=== PATIENT | female | born 1950 | race Hispanic/Latino ===

== ENCOUNTER 2016-04-20 09:32 | Day surgery (SDC) | payer MEDICARE ==
[~2016-04-20 09:32] MED LIST: PRED FORTE 1% ONE; TETCAINE OD PRN; TETRACAINE 0.5% OD PRN
--- NOTE | 2016-04-20 13:54 | Anesthesia Day of Surgery ---
Anesthesia Day of Surgery - Day of Surgery Patient Examined: Yes Patient H&P Reviewed: Yes Patient is NPO: Yes
--- NOTE | 2016-04-20 13:54 | Anesthesia Consultation ---
Anesthesia Consult and Med Hx Date of service: 04/20/16 - Airway Anesthetic Teeth Evaluation: Dentures (upper) ROM Head & Neck: Inadequate Mental/Hyoid Distance: Adequate Mallampati Class: Class IV Intubation Access Assessment: Possibly Difficult (jaw surgery - plates and screws mandible and maxilla, limited mouth opening with left deviation of jaw) - Pulmonary Exam CTA: Yes - Cardiac Exam Cardiac Exam: RRR - Pre-Operative Health Status ASA Pre-Surgery Classification: ASA3 Proposed Anesthetic Plan: MAC - Pulmonary Hx Smoking: Yes (CIGARETTES 1\\2 PPD SINCE 13 YEARS OLD) - Cardiovascular System Hx Hypertension: Yes (DIAGNOSED 2 YRS AGO) Hx Heart Murmur: Yes - Central Nervous System Hx Neuromuscular Disorder: Yes (muscular "ticks/jerks" per patient) Hx Seizures: Yes (LAST 2008 - no medications, headaches) - Gastrointestinal Hx Gastroesophageal Reflux Disease: No - Endocrine Hx Non-Insulin Dependent Diabetes: No (pre-diabetic, A1C 6.1) - Hematic Hx Anemia: Yes Hx Sickle Cell Disease: No - Other Systems Hx Alcohol Use: No Hx Substance Use: No Hx Cancer: No Hx Obesity: No
[2016-04-20] MEDS: AK-Dilate OD SCH ×3 (14:00→14:13)
[2016-04-20] MEDS: MYDRIACYL OD SCH ×3 (14:01→14:13)
[2016-04-20] MEDS: VIGAMOX OD SCH ×3 (14:01→14:14)
[2016-04-20] MEDS ORDERED: VERSED ONE (15:11)
[2016-04-20] MEDS ORDERED: SUBLIMAZE ONE (15:11)
[2016-04-20] MEDS ORDERED: NACL P/F VIAL (10 ML) 10 ML ONE (15:17)
[2016-04-20] MEDS ORDERED: ADRENALINE P/F IO ONE (15:24)
[2016-04-20] MEDS ORDERED: DIPRIVAN 10 MG/ML IV ONE (15:30)
--- NOTE | 2016-04-20 16:03 | Short Stay Summary ---
Short Stay Documentation Date of service: 04/20/16 - History H&P: obtained from office - Allergies and Medications Current Medications: Allergies codeine Adverse Reaction (Intermediate, Verified 04/17/16 13:26) Vomiting Home Medications Medication Instructions Recorded Confirmed Last Taken Type Ergocalciferol (Vitamin D2) 2,000 units PO BID 04/17/16 04/17/16 04/19/16 History [Vitamin D2] Hydrochlorothiazide [HCTZ] 25 mg PO QDAY 04/17/16 04/17/16 04/19/16 History Rosuvastatin Calcium [Crestor] 40 mg PO QDAY 04/17/16 04/20/16 04/19/16 History Active Medications Moxifloxacin HCl (Vigamox) 1 drops OD Q5MIN [facility] Stop: 04/22/16 00:02 Last Admin: 04/20/16 14:14 Dose: 1 drops Phenylephrine HCl (Ak-Dilate) 1 drops OD Q5M [facility] Last Admin: 04/20/16 14:13 Dose: 1 drops Tetracaine HCl (Tetracaine 0.5%) 1 drops OD Q5M PRN PRN Reason: Anesthesia Stop: 04/20/16 20:00 Last Admin: 04/20/16 13:59 Dose: 1 drops Tropicamide (Mydriacyl) 1 drops OD Q5MIN [facility] Stop: 04/22/16 00:02 Last Admin: 04/20/16 14:13 Dose: 1 drops - Brief post op/procedure progress note Date of procedure: 04/20/16 Pre-op diagnosis: cataract right eye Post-op diagnosis: same Procedure: Phacoemulsification with intraocular lens insertion right eye Anesthesia: MAC Surgeon: EL DEWEY Estimated blood loss: none Pathology: none Condition: stable - Disposition Condition at discharge: Good Disposition: DISCHARGED TO HOME OR SELFCARE - Discharge Diagnoses (1) Cataract Status: Acute
--- NOTE | 2016-04-20 16:05 | Operative Report ---
Operative Report Operative Report: PATIENT'S NAME: DATE OF : DATE OF SURGERY: 04/20/2016 PREOPERATIVE DIAGNOSIS: Cataract right eye POSTOPERATIVE DIAGNOSIS: Same OPERATIVE PROCEDURE: Phacoemulsification with intraocular lens implantation, right eye SURGEON: Patricia Garcia M.D. ABAP DEVELOPER SURGEON: Lucas Lens: AO60 19.0 D ANESTHESIA: Monitored anesthesia care in combination with topical and intracameral anesthesia because of the established specific risk of reflux, arrhythmias, or anxiety attacks associated with ocular manipulation, as well as the difficulty of the weather algorithm scientist to manage such potentially catastrophic events while simultaneously attempting to complete the surgical procedure and was deemed necessary for the patient's safety to have an Gravel Weigher present during the procedure whenever possible. An Gravel Weigher was utilized to regulate the intravenous sedation of the patient so the patient was cooperative yet not asleep in order for the patient to successfully maintain fixation of the eye on the operating light of the microscope. COMPLICATIONS: [No surgical complications] No blood loss. ALLERGIES: Codeine PROGNOSIS: Excellent INDICATIONS FOR SURGERY: The patient is undergoing surgery in the hopes of eliminating or improving these visual difficulties. PROCEDURE: Prior to surgery, the patient was instructed to use Acular drops one drop four times daily before surgery. After arriving at the surgery center , the patient was given topical anesthetic and dilating drops, as noted in the record. The patient was then taken into the operating room and given more anesthetic drops. The eyelids, lashes, and lid margins were scrubbed with Betadine solution, and the patient was draped. The Nurse Gravel Weigher administered IV sedation and monitored the patient during the procedure. The eye was then fixated with a 0.12, and a stab incision was made in the peripheral clear cornea into the anterior chamber. This was made on my left side. Viscoelastic was next used to fill the anterior chamber. The eye was once again fixated with the 0.12 forceps and a keratome was used make an incision in clear cornea peripherally on my right hand side temporally. The capsule forceps were used to open the central anterior capsule and then make a continuous round capsulotomy. Hydrodissection was carried out utilizing a cannula and balanced salt solution to delineate the cortical material from the capsule and the nucleus from the cortical material. The phaco tip was introduced into the eye and used to remove the anterior cortical material in the area of the capsulotomy. Then the phaco tip was buried into the nucleus, and a chopping instrument was introduced into the eye and used to provide countertraction in the nucleus between this instrument and the phaco tip fracturing the nucleus. This procedure was repeated multiple times, providing multiple small segments of the lens, and then the phaco tip was used to remove each of these segments. An I/A tip was then used to remove the remaining cortex. The anterior chamber was refilled with viscoelastic. An one-piece, acrylic intraocular lens was then placed into an inserting cartridge. The tip of the inserting cartridge was introduced into the keratome incision and into the anterior chamber. The implant was gently advanced through the cartridge and into the eye, where it unfolded, and both haptics were placed in the capsular bag, where it centered nicely and appeared to be well fixated. After placement of the intraocular lens, the I~and~A handpiece was placed back into the eye and used to remove the viscoelastic, including viscoelastic that was behind the optic of the intraocular lens. The anterior chamber was then filled with balanced salt solution, and hydration of the wound was used to cause swelling of the wound and more appropriate watertight closure. When the wound was found to be firm, the patient was asked to comment on how bright the light was. If there was no light perception at all or if the light was substantially dimmer than during the rest of the surgery, the amount of fluid in the eye was decompressed to lower the intraocular pressure until the patient could see the bright light again. This was done to avoid any damage or decreased blood flow to the optic nerve. MEDICATIONS APPLIED AT END OF SURGERY: One drop of Pred Forte and Vigamox The patient was given a shield to wear at night and was instructed not to rub or push on the eye. DISCHARGE SUMMARY: The patient was released in stable condition. The patient and those with the patient were given a written sheet of postoperative instructions and counseling on any abnormal laboratory studies. The patient is to see us tomorrow for follow-up in the office and is to call immediately for any difficulties. Patricia Garcia M.D. Date
--- NOTE | 2016-04-20 16:23 | Post Anesthesia Evaluation ---
- Post Anesthesia Evaluation Patient Participated: Yes Airway Patent: Yes Stable Respiratory Function: Yes Temp > 96.8F: Yes Pain Manageable: Yes Adequeate Hydration: Yes Anesthesia Complications: No Block Receding Appropriately: Not Applicable
[2016-04-20 17:10] VITALS: BP 128/75
[2016-04-20] MEDS ORDERED: PRED FORTE 1% OD SCH (18:00)
== END 2016-04-20 17:00 | disposition home or self-care (01) ==
LOC: OR 09:32
DX: H26.9 Unspecified cataract (principal); I10 Essential (primary) hypertension; G43.909 Migraine, unspecified, not intractable, without status migrainosus; M19.90 Unspecified osteoarthritis, unspecified site; F17.210 Nicotine dependence, cigarettes, uncomplicated; E78.00 Pure hypercholesterolemia, unspecified; D64.9 Anemia, unspecified; F90.9 Attention-deficit hyperactivity disorder, unspecified type; F41.9 Anxiety disorder, unspecified; Z90.81 Acquired absence of spleen; Z87.01 Personal history of pneumonia (recurrent)
CPT/HCPCS: 66984; 82962; J0171; J2250; J3010; V2632; J2704